=== PATIENT | female | born 1945 | race Caucasian/White ===

== ENCOUNTER 2025-07-30 13:34 | Outpatient (AMB) | payer MEDICARE, SELFPAY ==
--- NOTE | 2025-07-30 13:43 | A.OFFVIS_ITS ---
Intake Visit Reasons: Seizures HPI Comments Details: The patient is an 79-year-old female presenting to [facility] care with a new neurologist for management of focal seizures. 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 This was many years ago. She has a history of focal seizures for many years, which are generally controlled with medication unless she misses doses. The patient is not aware when the seizures occur, which last a few minutes, and she does not fall during them. During an episode, she reportedly recites the 23rd Psalm. The patient reports feeling tired sometimes after an episode. She was seen in the emergency room at [facility] a couple of months ago for a seizure after missing a few doses of her medication. She admits to being non-compliant with her medications at times. Her current medications include gabapentin (Neurontin) twice daily and carbamazepine (Tegretol) three times daily. The carbamazepine dose was recently reduced from 1.5 tablets to 1 tablet three times a day. Her prior neurologist was in [place] and is no longer practicing. 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 She lives alone, with her grandson living next door. Review of Systems Narrative Constitutional:?No fever, chills, fatigue, weight loss, or night sweats. HEENT:?No headache, vision changes, hearing loss, nasal congestion, sore throat. Cardiovascular:?No chest pain, palpitations, orthopnea, PND, or leg swelling. Respiratory:?No cough, shortness of breath, wheezing, or hemoptysis. Gastrointestinal:?No nausea, vomiting, abdominal pain, diarrhea, or constipation. Genitourinary:?No dysuria, frequency, incontinence, or hematuria. Musculoskeletal:?No joint pain, stiffness, weakness, or muscle aches. Neurological:? Complain of seizure and using a walker for ambulation Psychiatric:?No anxiety, depression, mood swings, sleep disturbance, or hallucinations. Endocrine:?No heat/cold intolerance, polydipsia, polyuria, or hair/skin changes. Hematologic/Lymphatic:?No easy bruising, bleeding, or lymphadenopathy. Integumentary (Skin):?No rash, lesions, itching, or color changes. Allergic/Immunologic:?No seasonal allergies, hives, or recurrent infections. Physical Exam Neuro Other: Mental Status: Alert and oriented to person, place, and time. Normal attention. Normal spontaneous speech, fluency, and comprehension. Anxious affect. Cranial Nerves: CN II: Visual morley full to confrontation, visual acuity intact. CN III, IV, : Pupils equal, round, reactive to light and accommodation. Extraocular movements are normal. CN V: Facial sensation is normal. CN VII: Facial movements symmetrical. CN VIII: Hearing intact to bedside conversation is normal. CN IX, X: Palate elevates symmetrically. CN XI: Shoulder shrug and head turn symmetrical. CN XII: Tongue midline without atrophy or fasciculations. Motor: No obvious arm or leg weakness. Reflexes: Deep tendon reflexes are 1+. Coordination: Jgqwhm-[id number]-ythu and pzfp-hb-ghhh testing normal. No dysmetria. Gait and Station: Slow and cautious with a walker. Extrapyramidal: Full facial expressions and blinking. No rigidity. Movements are appropriate with no tremor or abnormality. Speech: Normal; no dysarthria or tremor. Assessment & Plan Assessment & Plan (1) Complex partial seizure disorder: Code(s): G40.209 - Localization-related (focal) (partial) symptomatic epilepsy and epileptic syndromes with complex partial seizures, not intractable, without status epilepticus Category: Medical Plan Impression: 1. Complex partial seizure disorder 2. Anxiety disorder Rec: a: EEG b: Gabapentin 200mg tid, which she said was the new dose c: Carbamazepine can be changed to 300mg one tid Orders: Orders EEG Routine Today G40.209 - Localization-related (focal) (partial) symptomatic epilepsy and epileptic syndromes with complex partial seizures, not intractable, without status epilepticus Medications: New carbamazepine (Epitol) 200 mg PO TID 270 tabs 1RF gabapentin 300 mg PO BID 180 caps 1RF Coding Level of Care Code New Pt Level 3 (87720) Diagnoses Complex partial seizure disorder G40.209
--- OUTSIDE RECORDS SUMMARY | 2025-07-31 06:56 | XMS_ITS | Encounter Summary ---
Author Organization [facility] Address [address] [place] [address] Care Team Providers Care Topography Technician Name Role Phone Whit Chrsitianson MD Primary Care Provider [phone] Encounter Details Date Type Department Care Team (Late Contact Info) Description 07/18/2025 Telephone Internal Medicine [facility] [address] [phone] Whit Christianson MD [address] [place] [phone] Social History Tobacco Use Types Packs/Day Years Used Date Smoking Tobacco: Former Smokeless Tobacco: Never Alcohol Use Standard Drinks/Week Comments Yes 0 (1 standard drink = 0.6 oz pur e alcohol) Comments No Sex and Gender Information Value Date Recorded Sex Assigned at Not on file Legal Sex Female 5:28 PM EST Gender Identity Not on file Sexual Orientation Not on file documented as of this encounter Plan of Treatment Upcoming Encounters Date Type Department Care Team (Late Contact Info) Description 12/18/2025 9:45 AM EDT Office Visit Internal Medicine [facility] [address] [phone] Whit Christianson MD [address] [place] [phone] documented as of this encounter Visit Diagnoses Not on filedocumented in this encounter Additional Health Concerns Assessment Noted Time PHQ-9 Depression Total Score: 0 04/23/20 25 3:09 PM EDT A fall risk assessment has been complete d for the patient 01/02/2025 3:08 PM EDT documented as of this encounter Care Teams Topography Technician Relationship Specialty Start Date End Date Whit Christianson MD [address] [phone] PCP - General Internal Medicine 07/27/18 documented as of this encounter
--- OUTSIDE RECORDS SUMMARY | 2025-07-31 06:56 | XMS_ITS | Clinical Summary ---
Author Organization 175 [facility] Address [address] [place] [address] Phone Care Team Providers Care Supervisor Baking Name Role Phone Whit Christianson MD Primary Care Provider [phone] Allergies No known active allergies Medications cyanocobalamin (VITAMIN B-12) 1,000 mcg tablet Take 1 tablet (1,000 mcg total) by mouth 1 (one) time each day. 90 tablet 2 05/01/2025 Active alendronate (FOSAMAX) 70 mg tablet Take 1 tablet (70 mg total) by mouth every 7 (seven) days. Take in the morning with a full glass of water, on an empty stomach, and do not take anything else by mouth or lie down for the next 30 min. 12 tablet 1 05/01/2025 Active calcium carbonate-vitam in D3 600 mg-10 mcg (400 unit) capsule Take 1 capsule by mouth 2 (two) times a day. 180 each 2 05/01/2025 Active lisinopriL (PRINIVIL,ZESTR IL) 5 mg tablet Take 1 tablet (5 mg total) by mouth 1 (one) time each day. 90 tablet 1 05/01/2025 Active gabapentin (NEURONTIN) 300 mg capsule Take 1 capsule (300 mg total) by mouth 2 (two) times a day. 180 each 5 05/01/2025 Active potassium chloride (KLOR-CON) 10 mEq CR tablet Take 1 tablet (10 mEq total) by mouth 1 (one) time each day. 90 tablet 3 05/01/2025 Active carBAMazepine (TEGretol) 200 mg tablet Take 1 tablet (200 mg total) by mouth 3 (three) times a day. 90 each 5 05/01/2025 10/28/19 26 Active atorvastatin (LIPITOR) 20 mg tablet Take 1 tablet (20 mg total) by mouth 1 (one) time each day. 90 tablet 1 05/01/2025 Active atenoloL-chlort halidone (TENORETIC) 50-25 mg per tablet Take 1 tablet by mouth 1 (one) time each day. 90 tablet 2 05/01/2025 Active Active Problems Problem Noted Date Diagnosed Date CKD (chronic kidney disease) stage 3, GFR 30-59 ml/min ([facility] V24, [facility] V28) 07/25/2018 Assessment & Plan (01/02/2025 9:33 PM EDT): Pancreatic lesion 06/13/2018 Vitamin D deficiency 05/09/2018 Hypertension 05/04/2018 Assessment & Plan (01/02/2025 9:33 PM EDT): Osteoporosis 05/04/2018 Seizure disorder ([facility] V24, [facility] V28) 04/13 Overview (06/06/2024): S/p craniotomy Assessment & Plan (01/02/2025 9:33 PM EDT): Breast lesion 03/29/2018 Hyperlipidemia 02/21/2018 Assessment & Plan (01/02/2025 9:33 PM EDT): Vitamin B12 deficiency 01/08/2015 Benign colonic polyp 02/08/2013 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 Depression 07/28/2011 Cataract 05/28/2011 Encounters Date Type Department Care Team Description 07/19/2025 9:45 AM EST Office Visit Internal Medicine - [address] [place] [phone] Whit Christianson MD Mixed hyperlipidemia (Primary Dx); Primary hypertension; Seizure disorder ([facility] V24, [facility] V28); Stage 3b chronic kidney disease ([facility] V24, [facility] V28) 07/18/2025 Telephone Internal Medicine - [place] [address] [facility] [address] [place] [phone] Whit Christianson MD 05/08/2025 2:46 PM EDT - 05/08/2025 7:23 PM EDT Emergency [facility] Emergency [address] [place] [phone] Natalee Edouard, Fall, initial encounter (Primary Dx) Discharge Disposition: Home or Self Care 05/01/2025 12:00 PM EDT Office Visit Internal Medicine - [place] [address] [facility] [address] [place] [phone] Whit Christianson MD Seizure ([facility] V24, [facility] V28) (Primary Dx); Unsteady gait when walking; Primary hypertension; Mixed hyperlipidemia; Osteoporosis, unspecified osteoporosis type, unspecified pathological fracture presence from Last 3 Months Immunizations Immunization Administration Dates Next Due Influenza trivalent, 0.5mL ( Fluzone High-dose) 65yo and older 09/13/2017,07/12/2016,05/25/2013 Pneumococcal conjugate 13 va lent (Prevnar 13, PCV13) 2mo and older 08/31/2016 Pneumococcal polysaccharide 23 valent (Pneumovax 23) 2yo and older 02/27/2014 Surgical History Surgery Date Site/Laterality Comments HYSTERECTOMY PROCEDURE: HISTORICAL HYSTERECTOMY OTHER SURGICAL HISTORY PROCEDURE: HISTORY OTHER; COMMENT: craniotomy BREAST LUMPECTOMY PROCEDURE: HISTORICAL BREAST LUMPECTOMY; COMMENT: benign COLONOSCOPY PROCEDURE: HISTORICAL COLONOSCOPY; COMMENT: nml, polyps Medical History Medical History Date Comments Hypertension DX:Hypertension Benign colonic polyp 02/08/2013 DX:Benign c olonic polyp Breast lesion 03/29/2018 DX:Breast lesion Cataract 05/28/2011 DX:Cataract 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 DX:Chond romalacia patellae CKD (chronic kidney disease) stage 3, GFR 30-59 ml/min ([facility] V24, [facility] V28) 07/25/2018 DX:CKD (chronic kidney disea se) stage 3, GFR 30-59 ml/min ([facility]) Depression 07/28/2011 DX:Depression Hyperlipidemia 02/21/2018 DX:Hyperlipidemi a Osteoporosis 05/04/2018 DX:Osteoporosis Pancreatic lesion 06/13/2018 DX:Pancreatic lesion Seizure disorder (CMS/HCC V2 4, CMS/HCC V28) 05/04/2018 DX:Seizure disorder (HCC); C OMMENT: S/p craniotomy Vitamin B12 deficiency 01/08/2015 DX:Vitami n B12 deficiency Vitamin D deficiency 05/09/2018 DX:Vitamin D deficiency Family History Medical History Relation Name Comments Breast cancer Neg Hx Colon cancer Neg Hx Ovarian cancer Neg Hx Social History Tobacco Use Types Packs/Day Years Used Date Smoking Tobacco: Former Smokeless Tobacco: Never Tobacco Cessation:Counseling Given: Not Answered Alcohol Use Standard Drinks/Week Comments Yes 0 (1 standard drink = 0.6 oz pur e alcohol) Comments No Sex and Gender Information Value Date Recorded Sex Assigned at Not on file Legal Sex Female 5:28 PM EST Gender Identity Not on file Sexual Orientation Not on file Obstetrics History Last Filed Vital Signs Vital Sign Reading Time Taken Comments Blood Pressure 134/86 07/19/2025 9:47 AM EST Pulse 89 07/19/2025 9:47 AM EST Temperature 36.6 C (97.9 F) 05/08/2025 4:06 PM EDT Respiratory Rate 18 05/08/2025 12:25 PM EDT Oxygen Saturation 98% 07/19/2025 9:47 AM EST Inhaled Oxygen Concentration - - Weight 49.9 kg (110 lb) 07/19/2025 9:47 AM EST Height 160 cm (5' 3 ) 07/19/2025 9:47 AM EST Body Mass Index 19.49 07/19/2025 9:47 AM EST Plan of Treatment Upcoming Encounters Date Type Department Care Team (Late st Contact Info) Description 12/18/2025 9:45 AM EDT Office Visit Internal Medicine - [address] [place] [address] Whit Christianson MD [address] [place] [phone] Health Maintenance Due Date Last Done Comments DTaP,Tdap,and Td Vaccines (1 - Tdap) 1964 Social Influencers of Health Screening 08/21/2022 Zoster Vaccines (2 of 2) 03/15/2025 01/18/2025 COVID-19 Vaccine (11 - Pfizer risk 2024- season) 2025 06/25/2025, 01/03/2025, 05/15/2024, Additional history exists Falls Risk Assessment 01/02/2026 01/02/2025, 025 Medicare Annual Wellness Visit 01/02/2026 01/02/2025 Hypertension/CHF/CAD Annual BMP Blood Test 03/22/2026 03/22/2025, 07/16/2024, 02/07/2024, Additional history exists Osteoporosis Screening (Bone Density Screening) 06/08/2028 06/08/2018 Cholesterol Screening (Lipid Panel) 09/23/2028 09/23/2023 RSV Immunization Adult Patients Completed 09/09/2023 Depression Screening Completed 01/02/2025, 02/07/20 Pneumococcal Vaccine: 50+ Years Completed 01/18/2025, 08/31/2016, 02/27/2014 Influenza Vaccine Completed 06/25/2025, , 05/26/2022, Additional history exists HIB Vaccines Aged Out No longer eligi ble based on patient's age to complete this topic HPV Vaccines Aged Out No longer eligi ble based on patient's age to complete this topic Hepatitis A Vaccines Aged Out No long er eligible based on patient's age to complete this topic Hepatitis B Vaccines Aged Out No long er eligible based on patient's age to complete this topic IPV Vaccines Aged Out No longer eligi ble based on patient's age to complete this topic MMR Vaccines Aged Out No longer eligi ble based on patient's age to complete this topic Meningococcal ACWY Vaccine Aged Out N o longer eligible based on patient's age to complete this topic Meningococcal B Vaccine Aged Out No l onger eligible based on patient's age to complete this topic RSV Immunization Patients Under 20 months Aged Out No longer eligible based on patient's age to complete this topic Varicella Vaccines Aged Out No longer eligible based on patient's age to complete this topic Procedures Procedure Name Priority Date/Time Associated Diagnosis Comments CT HEAD WO CONTRAST STAT 05/08/2025 5 :39 PM EDT COMPREHENSIVE METABOLIC PANEL Routine 03/22/2025 12:25 PM EDT Mixed hyperlipidemia Primary hypertension HM DEPRESSION SCREENING Routine 02/07/2024 LIPID PANEL Routine 09/23/2023 CONY DEXA AXIAL SKELETON Routine 06/08/2018 3:41 PM EDT Age-related osteoporosis without current pathological fracture from Last 3 Months or Most Recently Relevant to Health Maintenance Results * CT Head wo Contrast (05/08/2025 5:39 PM EDT) Anatomical Region Laterality Modality Head and Neck Computed Tomogra phy 05/08/2025 6:18 PM EDT Impressions 05/08/2025 6:18 PM EDT Impression: No acute intracranial abnormality is identified. This document has been electronically signed by: Jens Briscoe MD on 05/08/2025 18:18:42 Narrative 05/08/2025 6:18 PM EDT INDICATION: Head trauma, minor (Age >= [address]y) CT of the head without contrast. No comparison. Findings: There are mild nonspecific white matter changes. Previous left craniectomy with encephalomalacia in the left occipital and parietal lobes. No acute hemorrhage or infarct is seen. No masses are identified and there is no hydrocephalus. There is no mass-effect. Procedure Note Gamal Briscoe MD - 05/08/2025 INDICATION: Head trauma, minor (Age >= [address]y) [address] of the head without contrast. No comparison. Findings: There are mild nonspecific white matter changes. Previous leftcraniectomy with encephalomalacia in the left occipital and parietal lobes. No acute hemorrhage or infarct is seen. No masses are identified and there is no hydrocephalus. There is no mass-effect. IMPRESSION: Impression: No acute intracranial abnormality is identified. This document has been electronically signed by: Jens Briscoe MD on 05/08/2025 18:18:[address] PROCEDURES Final Res ult * (ABNORMAL) Comprehensive metabolic panel (03/22/2025 12:25 PM EDT) Sodium 136 133 - 145 mmol/L LAB CHEMISTRY METHOD 03/22/2025 5:20 PM [facility] Potassium 5.2 3.5 - 5.5 mmol/L LAB CHEMISTRY METHOD 03/22/2025 5:20 PM [facility] Chloride 100 96 - 110 mmol/L LAB CHEMISTRY METHOD 03/22/2025 5:20 PM [facility] CO2 30 21 - 32 mmol/L LAB CHEMISTRY METHOD 03/22/2025 5:20 PM [facility] Anion Gap 6 3 - 11 LAB CHEMISTRY METHOD 03/22/2025 5:20 PM [facility] Glucose 100 70 - 100 mg/dL LAB CHEMISTRY METHOD 03/22/2025 5:20 PM [facility] BUN 13 5 - 25 mg/dL LAB CHEMISTRY METHOD 03/22/2025 5:20 PM [facility] Creatinine 1.09 0.50 - 1.10 mg/dL LAB CHEMISTRY METHOD 03/22/2025 5:20 PM [facility] eGFR 51(L) >=60 mL/min/1. 73m2 LAB CHEMISTRY METHOD 03/22/2025 5:20 PM [facility] Comment:Calculation based on the Chronic Kidney Disease Epidemiology Collaboration (CKD-EPI) equation refit without adjustment for race. BUN/Creatinine Ratio 11.9 LAB CHEMISTRY METHOD 03/22/2025 5:20 PM [facility] Calcium 9.6 8.5 - 10.5 mg/dL LAB CHEMISTRY METHOD 03/22/2025 5:20 PM [facility] AST (SGOT) 18 10 - 42 unit/L LAB CHEMISTRY METHOD 03/22/2025 5:20 PM [facility] ALT (SGPT) 18 10 - 60 unit/L LAB CHEMISTRY METHOD 03/22/2025 5:20 PM [facility] Alkaline Phosphatase 131(H) 42 - 121 unit/L LAB CHEMISTRY METHOD 03/22/2025 5:20 PM EDT [facility] Total Protein 7.6 6.0 - 8.0 g/dL LAB CHEMISTRY METHOD 03/22/2025 5:20 PM EDT [facility] Albumin 3.6 3.2 - 5.0 g/dL LAB CHEMISTRY METHOD 03/22/2025 5:20 PM EDT [facility] Total Bilirubin 0.2 0.0 - 1.4 mg/dL LAB CHEMISTRY METHOD 03/22/2025 5:20 PM EDT [facility] Blood Venous blood specimen / Unknown Venipuncture / Unknown 03/22/2025 12:25 PM EDT 03/22/2025 12:25 PM EDT Whit Christianson MD LAB BLOOD ORDERABLES Final Res ult [facility] [address] [place] [address], [place] [phone] * Depression Screening (02/07/2024) Pathologist [facility] Depression Screening Abstracted Historical Provider HEALTH MAINTENANCE Final Result * (ABNORMAL) Lipid panel (09/23/2023) LDL/HDL Ratio 3 0 - 4 Triglycerides 90 0 - 150 mg/dL Cholesterol 274(A) 0 - 200 mg/dL HDL 107 >=40 mg/dL LDL Cholesterol 149(A) 0 - 100 mg/dL Blood Venous blood specimen / Unknown Historical Provider LAB BLOOD ORDERABLES Kenzie l Result * CONY DEXA AXIAL SKELETON (06/08/2018 3:41 PM EDT) Anatomical Region Laterality Modality Mammography 06/08/2018 2:54 PM EDT Narrative 06/08/2018 3:41 PM EDT [facility] Diagnostic Imaging Department [address] [place] [id number] Patient: SONIA MARIE /Age/Sex: 1945 - 72 - F Unit#: [id number] Location/Status: SPDIMAM/REG CLI [facility] Ordering Physician: EAN BARBER PA-C [facility] Dexa Axial Skeleton - 06/08/18 - 1522 HISTORY: The patient is a 72-year-old postmenopausal female with clinical concern for metabolic bone disease. FINDINGS: Dual energy x-ray absorptiometry of the lumbar spine and femurs is performed. The mean bone mineral density at L1-L4 (with the exclusion of L2 and L3) is 0.830 gm/cm2 which is 71% of that of young normals and 81% of that of age matched controls. This yields a T-score of -2.8 and a Z-score of -1.6 which is diagnostic of osteoporosis. The mean bone mineral density of the femurs bilaterally is 0.762 gm/cm2 which is 76% of that of young normals and 84% of that of age matched controls. This yields a T-score of -1.9 and a Z-score of -1.2 which is diagnostic of osteopenia. IMPRESSION: 1. Osteoporosis. There has been an increase of 3.8% in bone mineral density in the lumbar spine since the prior examination of 04/03/2014. There has been a decrease of 7.0% in bone mineral density in the right femur and a decrease of 7.9% in bone mineral density in the left femur. 2. FRAX analysis yields a 10-year probability of major osteoporotic fracture of 7.5% and a 10-year probability of hip fracture of 2.2%. Code 26484 Dictating Physician: EMELI RIBEIRO MD Electronically Signed by: EMELI RIBEIRO MD Dic Date/Time: 06/08/18 1539 Sign date/Time: 06/08/18 1541 Procedure Note Emeli Ribeiro MD - 08/31/2022 [facility] Diagnostic Imaging Department [address] [place] [address] Patient: IZABELSONIAALINE Troy./Age/Sex: 1945 - 72 - F Unit#: [id number] Location/Status: SPDIMA/REG CLI Mnemonic/Ordering Site: [facility] Ordering Physician: EAN BARBER PA-C [facility] Dexa Axial Skeleton - 06/08/18 1522 HISTORY: The patient is a 72-year-old postmenopausal female withclinical concern for metabolic bone disease. FINDINGS: Dual energy x-ray absorptiometry of the lumbar spine and femursis performed. The mean bone mineral density at L1-L4 (with the exclusion ofL2 and L3) is 0.830 gm/cm2 which is 71% of that of young normals and 81% of thatof age matched controls. This yields a T-score of -2.8 and a Z-score of -1.6which is diagnostic of osteoporosis. The mean bone mineral density of the femurs bilaterally is 0.762 gm/os2heayl is 76% of that of young normals and 84% of that of age matched controls.This yields a T-score of -1.9 and a Z-score of -1.2 which is diagnostic of osteopenia. IMPRESSION: 1. Osteoporosis. There has been an increase of 3.8% in bone mineraldensity in the lumbar spine since the prior examination of 04/03/2014. There has gera decrease of 7.0% in bone mineral density in the right femur and a decreaseof 7.9% in bone mineral density in the left femur. 2. FRAX analysis yields a 10-year probability of major osteoporoticfracture of 7.5% and a 10-year probability of hip fracture of 2.2%. Code 43224 Dictating Physician: EMELI RIBEIRO MD Electronically Signed by: EMELI RIBEIRO MD Dic Date/Time: 06/08/18 1539 Sign date/Time: 06/08/18 1541 Ean BHATIA IMG BI PROCEDURES Final Resu lt from Last 3 Months or Most Recently Relevant to Health Maintenance Insurance [employer]AGE Care Teams Supervisor Baking Relationship Specialty Start Date End Date Whit Christianson MD 175 [facility] [address] [place] [phone] PCP - General Internal Medicine 07/27/18
== END 2025-07-30 14:04 | disposition home or self-care (01) ==
LOC: HO.HSM 13:34
PROVIDERS: PCP Internal Medicine; Visit Provider Psychiatry & Neurology Neurology
DX: G40.209 Localization-related (focal) (partial) symptomatic epilepsy and epileptic syndromes with complex partial seizures, not intractable, without status epilepticus (principal)
CPT/HCPCS: 99203

== ENCOUNTER → 2025-07-30 13:34 | Outpatient (BNVA) | payer MEDICARE, SELFPAY | PROVIDERS: PCP Internal Medicine; Visit Provider Psychiatry & Neurology Neurology | DX: G40.209 Localization-related (focal) (partial) symptomatic epilepsy and epileptic syndromes with complex partial seizures, not intractable, without status epilepticus (principal) | CPT/HCPCS: 99202 ==

== ENCOUNTER 2025-09-03 12:59 | Outpatient (REF) | payer MEDICARE, SELFPAY ==
--- NOTE | 2025-09-03 13:02 | EEG_ITS ---
History: She has a history of focal seizures for many years, which are generally controlled with medication unless she misses doses. The patient is not aware when the seizures occur, which last a few minutes, and she does not fall during them. During an episode, she reportedly recites the 23rd Psalm. The patient reports feeling tired sometimes after an episode. She was seen in the emergency room at [facility] a couple of months ago for a seizure after missing a few doses of her medication. She admits to being non-compliant with her medications at times. Medication: atenolol, atorvastatin, carbamazepine, gabapentin, lisinopril, potassium chloride Technical Description Photic Stimulation: completed Hyperventilation: omitted Behavioral State: pt cooperative, follows commands, pleasant, no clinical changes State of Consciousness: awake and sleep Skull Defect: scar just above T5 Sedation: none Handedness: right Duration: 33 min 52 sec Director Biomedical Engineering Comments: Last Meal: 09/03/25 11am Time / date of last symptom: couple of months ago Description: This is a 16 channel EEG with an EKG lead. Patient is reported awake and sleep during the tracing. Background EEG rhythm, when clearly seen, was mixed theta beta low to medium amplitude. Frequently it was interrupted by sharp waves and sharply controlled disorganized rhythm more so in left hemisphere and sometime bilateral. Photic stimulation did not produce any significant driving. Hyperventilation was not performed. Cardiac lead did not reveal any significant abnormality. Impression: Abnormal EEG suggesting left hemispheric abnormalities suggesting underlying tendency for seizure disorder. JAMESD
--- OUTSIDE RECORDS SUMMARY | 2025-09-03 14:04 | XMS_ITS ---
Author Name [facility] Organization Unknown Care Team Organization Name Specialty Phone Email Start Date End Da te [facility] Whit Chaganti Primary [facility] 02/18/2023 04/30/20 24 [facility] NULL Primary Care 07/20/2022 04/30/2024
--- OUTSIDE RECORDS SUMMARY | 2025-09-03 14:04 | XMS_ITS | Clinical Summary ---
Author Organization [address] [facility] Address [address] [place] [address] Phone Care Team Providers Care Media Relations Director Name Role Phone Whit Christianson MD Primary Care Provider [phone] Allergies No known active allergies Medications cyanocobalamin [...] kidney disease) stage 3, GFR 30-59 ml/min 07/25/2018 Assessment & Plan (01/02/2025 9:33 PM EDT): Pancreatic lesion 06/13/2018 Vitamin D deficiency 05/09/2018 Hypertension 05/04/2018 Assessment & Plan (01/02/2025 9:33 PM EDT): Osteoporosis 05/04/2018 Seizure disorder 05/04/2018 Overview (06/06/2024): S/p craniotomy Assessment & Plan (01/02/2025 9:33 PM EDT): Breast lesion 03/29/2018 Hyperlipidemia 02/21/2018 Assessment & Plan (01/02/2025 9:33 PM EDT): Vitamin B12 deficiency 01/08/2015 Benign colonic polyp 02/08/2013 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 Depression 07/28/2011 Cataract 05/28/2011 Encounters Date Type Department Care Team Description 07/19/2025 9:45 AM EST Office Visit Internal Medicine [address] [address] Whit Christianson MD Mixed hyperlipidemia (Primary Dx); Primary hypertension; Seizure disorder (CMS/HCC V24, CMS/HCC V28); Stage 3b chronic kidney disease (CMS/HCC V24, CMS/HCC V28) 07/18/2025 Telephone Internal Medicine [address] [address] Whit Christianson MD from Last 3 Months Immunizations Immunization Administration [...] kidney disease) stage 3, GFR 30-59 ml/min ([facility] V24, CMS/HCC V28) 07/25/2018 DX:CKD (chronic kidney disea se) stage 3, GFR 30-59 ml/min ([facility]) Depression 07/28/2011 DX:Depression Hyperlipidemia 02/21/2018 DX:Hyperlipidemi a Osteoporosis 05/04/2018 DX:Osteoporosis Pancreatic lesion 06/13/2018 DX:Pancreatic lesion Seizure disorder (CMS/HCC V2 4, CMS/[facility] V28) 05/04/2018 DX:Seizure disorder ([facility]); C OMMENT: S/p craniotomy Vitamin B12 deficiency [...] on file Sexual Orientation Not on file Last Filed Vital Signs Vital Sign Reading [...] AM EDT Office Visit Internal Medicine - [place] [address] [facility] [address] [place] [address] Whit Christianson MD [address] [facility] [address] [place] [address] Health Maintenance Due Date Last Done Comments [...] Completed 09/09/2023 Depression Screening Completed 01/02/2025, 02/07/20 24 Pneumococcal Vaccine: 50+ Years Completed 01/18/2025, 08/31/2016, [...] Procedure Name Priority Date/Time Associated Diagnosis Comments COMPREHENSIVE METABOLIC PANEL Routine 03/22/2025 12:25 PM EDT Mixed hyperlipidemia Primary hypertension DEPRESSION SCREENING Routine 02/07/2024 LIPID PANEL Routine 09/23/2023 [facility] DEXA AXIAL SKELETON Routine 06/08/2018 3:41 PM EDT Age-related osteoporosis without current pathological fracture from Last 3 Months or Most Recently Relevant to Health Maintenance Results * (ABNORMAL) Comprehensive metabolic panel (03/22/2025 12:25 PM EDT) Sodium 136 133 - 145 mmol/L LAB CHEMISTRY METHOD 03/22/2025 5:20 PM EDT [facility] Potassium 5.2 3.5 - 5.5 mmol/L LAB CHEMISTRY METHOD 03/22/2025 5:20 PM EDT [facility] Chloride 100 96 - 110 mmol/L LAB CHEMISTRY METHOD 03/22/2025 5:20 PM [facility] CO2 30 21 - 32 mmol/L LAB CHEMISTRY METHOD 03/22/2025 5:20 PM [facility] Anion Gap 6 3 - 11 LAB CHEMISTRY METHOD 03/22/2025 5:20 PM [facility] Glucose 100 70 - 100 mg/dL LAB CHEMISTRY METHOD 03/22/2025 5:20 PM [facility] BUN 13 5 - 25 mg/dL LAB CHEMISTRY METHOD 03/22/2025 5:20 PM [facility] Creatinine 1.09 0.50 - 1.10 mg/dL LAB CHEMISTRY METHOD 03/22/2025 5:20 PM [facility] eGFR 51(L) >=60 mL/min/1. 73m2 LAB CHEMISTRY METHOD 03/22/2025 5:20 PM [facility] Comment:Calculation based on the Chronic Kidney Disease Epidemiology Collaboration (CKD-EPI) equation refit without adjustment for race. BUN/Creatinine Ratio 11.9 LAB CHEMISTRY METHOD 03/22/2025 5:20 PM [facility] Calcium 9.6 8.5 - 10.5 mg/dL LAB CHEMISTRY METHOD 03/22/2025 5:20 PM [facility] AST (SGOT) 18 10 - 42 unit/L LAB CHEMISTRY METHOD 03/22/2025 5:20 PM [facility] ALT (SGPT) 18 10 - 60 unit/L LAB CHEMISTRY METHOD 03/22/2025 5:20 PM [facility] Alkaline Phosphatase 131(H) 42 - 121 unit/L LAB CHEMISTRY METHOD 03/22/2025 5:20 PM [facility] Total Protein 7.6 6.0 - 8.0 g/dL LAB CHEMISTRY METHOD 03/22/2025 5:20 PM [facility] Albumin 3.6 3.2 - 5.0 g/dL LAB CHEMISTRY METHOD 03/22/2025 5:20 PM EDT [facility] Total Bilirubin 0.2 0.0 - 1.4 mg/dL LAB CHEMISTRY METHOD 03/22/2025 5:20 PM EDT [facility] Blood Venous blood specimen / Unknown Venipuncture / Unknown 03/22/2025 12:25 PM EDT 03/22/2025 12:25 PM EDT Whit Christianson MD LAB BLOOD ORDERABLES Final Res ult [facility] [address] [place] [address], * Depression Screening (02/07/2024) Depression Screening Abstracted Historical Provider HEALTH MAINTENANCE [...] PM EDT Narrative 06/08/2018 3:41 PM EDT [facility] Diagnostic Imaging Department [address] [place] [address] Patient: SONIA MARIE.O.B./Age/Sex: 1945 72 - F Unit#: [id number] Location/Status: [facility] Mnemonic/[facility] Ordering Physician: ROSE MARIE BARBER PA-C [facility] Dexa Axial Skeleton - 06/08/181521 HISTORY: The patient is a 72-year-old postmenopausal [...] probability of hip fracture of 2.2%. Code 53753 Dictating Physician: EMELI RIBEIRO MD Electronically Signed by: EMELI RIBEIRO MD Dic Date/Time: 06/08/18 1539 Sign date/Time: 06/08/18 1541 Procedure Note Emeli Ribeiro MD - 08/31/2022 [facility] Diagnostic Imaging Department [address] [place] [address] [id number] Patient: SONIA MARIE /Age/Sex: 1945 - 72 - F Unit#: [id number] Location/Status: [facility] Mnemonic/Ordering Site: [facility] Ordering Physician: ROSE MARIE BARBER PA-C [facility] Dexa Axial Skeleton - [...] density of the femurs bilaterally is 0.762 gm/cv6lysce is 76% of that of young normals [...] probability of hip fracture of 2.2%. Code 74546 Dictating Physician: EMELI RIBEIRO MD Electronically Signed by: EMELI RIBEIRO MD Dic Date/Time: 06/08/18 1539 Sign date/Time: 06/08/18 1541 Rose Marie BHATIA IMG BI PROCEDURES Final Resu lt from Last 3 Months or Most Recently Relevant to Health Maintenance Insurance [employer] MED[employer] Care Teams Media Relations Director Relationship Specialty Start Date End Date Whit Christianson MD [address] [facility] [address] [place] [address] PCP - General Internal Medicine 07/27/18
== END 2025-09-03 13:00 | disposition home or self-care (01) ==
LOC: HO.NEURO 12:59
PROVIDERS: PCP Internal Medicine; Visit Provider Psychiatry & Neurology Neurology
DX: G40.209 Localization-related (focal) (partial) symptomatic epilepsy and epileptic syndromes with complex partial seizures, not intractable, without status epilepticus (principal)
CPT/HCPCS: 95819

== ENCOUNTER → 2025-09-03 13:02 | Outpatient (BNV) | payer MEDICARE, SELFPAY | PROVIDERS: PCP Internal Medicine; Visit Provider Psychiatry & Neurology Neurology | DX: G40.209 Localization-related (focal) (partial) symptomatic epilepsy and epileptic syndromes with complex partial seizures, not intractable, without status epilepticus (principal) | CPT/HCPCS: 95819 ==